=== PATIENT | female | born 1955 | race Caucasian/White ===

== ENCOUNTER 2020-11-09 08:44 | Outpatient (CLI) | payer MEDICARE, OTHER | END 2020-11-09 23:59 | disposition home or self-care (01) | LOC: ROC 08:44 | PROVIDERS: ATTEND Radiology Radiation Oncology | DX: C79.51 Secondary malignant neoplasm of bone (principal) | CPT/HCPCS: G0463 ==

== ENCOUNTER 2020-11-18 09:24 | Outpatient (CLI) | payer MEDICARE, OTHER ==
[2020-11-18] MEDS ORDERED: GADOTERATE 10 MMOL/20ML SYR ONE (12:24)
== END 2020-11-18 23:59 | disposition home or self-care (01) ==
LOC: RAD 09:24
PROVIDERS: ATTEND Radiology Radiation Oncology
DX: C79.51 Secondary malignant neoplasm of bone (principal); M51.35 Other intervertebral disc degeneration, thoracolumbar region; M48.061 Spinal stenosis, lumbar region without neurogenic claudication; N28.1 Cyst of kidney, acquired
CPT/HCPCS: 72157; 72158; A9575

== ENCOUNTER 2020-11-19 08:38 | Outpatient (CLI) | payer MEDICARE, OTHER | END 2020-11-19 23:59 | disposition home or self-care (01) | LOC: ROC 08:38 | PROVIDERS: ATTEND Radiology Radiation Oncology | DX: C79.51 Secondary malignant neoplasm of bone (principal) | CPT/HCPCS: 99213; G0463 ==